=== PATIENT | male | born 1960 | race African-American/Black ===

== ENCOUNTER 2016-04-20 08:00 | Inpatient (IN) | payer BC ==
[2016-04-14 13:42] VITALS: BMI 25.0
[2016-06-08] MEDS ORDERED: BUPIVACAINE HCL/PF 0.25% (2.5MG/ML) 10 ML VIAL IJ ONE
[2016-06-08 07:17] LABS: INR 1.1 (0.82-1.09); PROTHROMBIN TIME (PATIENT) 12.1 SEC (9.98-11.88)
[2016-06-08] MEDS ORDERED: BUPIVACAINE HCL/PF 0.25% (2.5MG/ML) 10 ML VIAL ONE (07:19)
[2016-06-08] MEDS ORDERED: THROMBIN (BOVINE) 5,000 UNIT VIAL TP ONE ×3 (07:19→09:15)
[2016-06-08 07:20] LABS: ACTIVATED PTT 35.7 SECONDS (26.9-34.4)
[2016-06-08] MEDS ORDERED: PNEUMOC 13-VAL CONJ-DIP CRM/PF 0.5 ML DISP.SYRIN IM ONE (07:29)
[2016-06-08] MEDS ORDERED: BACITRACIN 30 GM TUBE TOPICAL OINTMENT ONE (07:58)
[2016-06-08] MEDS ORDERED: MIDAZOLAM HCL 2 MG/2 ML SINGLE DOSE VIAL ONE ×2 (08:17)
--- NOTE | 2016-06-08 08:20 | HP ---
History & Physical Update - History History: No Change - Physical Physical: No Change - Assessment Assessment: No Change - Plan Plan: No Change
[2016-06-08] MEDS ORDERED: ROCURONIUM BROMIDE 50 MG/5 ML VIAL ONE (08:25)
[2016-06-08] MEDS ORDERED: PROPOFOL 20 ML ONE ×17 (08:27→10:40)
[2016-06-08] MEDS ORDERED: BACITRACIN 30 GM TUBE TOPICAL OINTMENT TP ONE (08:40)
[2016-06-08] MEDS ORDERED: ceFAZolin SODIUM 1 GM VIAL IVPB ONE (08:40)
[2016-06-08] MEDS ORDERED: GELATIN SPONGE,ABSORBABLE 1 GM PACKET TP ONE ×2 (09:15)
[2016-06-08] MEDS ORDERED: BACITRACIN 50,000 UNITS VIAL TP ONE ×2 (09:15)
[2016-06-08] MEDS ORDERED: LIDOCAINE HCL/PF 2% SDV 5ML VIAL ONE (12:09)
[2016-06-08] MEDS ORDERED: ONDANSETRON 4 MG/2 ML VIAL ONE (12:09)
[2016-06-08] MEDS ORDERED: ONDANSETRON 4 MG/2 ML VIAL IVPB PRN (12:16)
--- NOTE | 2016-06-08 12:16 | OP ---
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; stenosis; cord compression, myelopathy; prior C5-6 fusion Operation: Partial/extended corpectomies C3 and C4 for decompression of spinal cord and cervical roots; anterior interbody fusion C3-4; instrumentation C3-4; interbody implant; microdissection; traction for disc space distraction and implant placement Findings: Large bridging osteophytes; posterior fibrotic HNP R> L with cord compression; sensitive roots R > L; sensitive roots R > L Implants: [employer] 22 mm Trinica Select plate and 16 mm variable angle screws; 8 mm lordotic Floydada interbody implant Post-Operative Diagnosis: Same as Pre-op Surgeon: Wilian Carvajal) Steel Turner: Barbara Hernandez Anesthesiologist/MEDICAL RECEPTION SPECIALIST: Martha Farrell MD Anesthesia: General Specimens Removed: C3-4 HNP Estimated Blood Loss (mls): 25
[2016-06-08] MEDS ORDERED: GABAPENTIN 300 MG CAPSULE (FP) PO PRN (12:18)
[2016-06-08] MEDS: HYDROmorphone HCL CARPU-JECT 1 MG/1 ML DISP.SYRIN IVPB PRN ×2 (12:55→19:04)
[2016-06-08] MEDS ORDERED: HYDROmorphone HCL CARPU-JECT 2 MG/1 ML DISP.SYRIN ONE (13:19)
[2016-06-08] MEDS ORDERED: LACTATED RINGERS SOLUTION 1,000 ML IV SCH (13:30)
--- NOTE | 2016-06-08 13:51 | OP ---
DATE OF OPERATION: 06/08/2016 PREOPERATIVE DIAGNOSIS: C3-C4 radiculopathy. POSTOPERATIVE DIAGNOSIS: C3-C4 radiculopathy. PROCEDURE: Anterior cervical decompression and interbody fusion and instrumentation at C3-C4. SURGICAL ATTENDING: Wilian Carvajal MD, and Tammy Martinez MD ANESTHESIA: General with endotracheal intubation. POSITION: Supine. CLOSURE : Vicryl 3-0 for platysma and for subcutaneous, 4-0 undyed Vicryl for skin. ESTIMATED BLOOD LOSS: Less than 100 mL. COMPLICATIONS: None. CONDITION: To recovery room in stable condition. DESCRIPTION OF PROCEDURE: The patient was taken to the operating room on June 08, 2016. General anesthesia with endotracheal intubation was administered by the anesthesiologist. IV Kefzol was given prophylactically prior to the case. Patient was placed supine on the operating table. Spinal cord monitoring was instituted prior to the case. Localization of the level was performed using a spinal needle and a preoperative x-ray confirming the C3-C4 level. The anterior cervical region was then prepped and draped in the usual sterile fashion. As patient has a previous incision on the right side from a C5-C6 surgical fusion 10 years prior, we elected to use the right side for the surgical approach to this procedure. A horizontal incision at the level C3-C4 was incised. Hemostasis was achieved with Bovie cautery. Incision was carried through the platysma. Blunt dissection was then carried down to the prevertebral fascia with retractors being applied. At this time Dr. Luis Manuel Carvajal, neurosurgeon, performed the interbody fusion. Please see his dictation on this procedure which was dictated separately. Post the fusion being performed, the wound was closed in layers with 3-0 Vicryl for the platysma, 3-0 for subcutaneous, and 4-0 undyed Vicryl with Steri-Strips for skin. Sterile dressing was applied. Patient awakened from anesthesia and transferred to recovery room in stable condition. No complications. TAMMY MARTINEZ M.D. [id number]
--- NOTE | 2016-06-08 13:53 | SURG ---
Surgery Tire Stripper Note Tire Stripper: Barbara Hernandez PA-C Date of Service: 06/08/16 Diagnosis: C3-4 spondylosis; stenosis; cord compression, myelopathy; prior C5-6 fusion Procedure: Partial/extended corpectomies C3 and C4 for decompression of spinal cord and cervical roots; anterior interbody fusion C3-4; instrumentation C3-4; interbody implant; microdissection; traction for disc space distraction and implant placement I was present for the entirety of the operative procedure. For further detail, please refer to operative report. Visit type - Case Type Case Type: Scheduled Admission - Emergency Emergency Visit: No - New patient This patient is new to me today: Yes Date on this admission: 06/08/16 - Critical Care Critical Care patient: No
[2016-06-08] MEDS ORDERED: diazePAM 5 MG TABLET ONE (15:49)
[2016-06-08] MEDS: oxyCODONE HCL 5 MG TABLET PO PRN (15:50)
[2016-06-08] MEDS: diazePAM 5 MG TABLET PO SCH ×2 (15:50→22:45)
[2016-06-08] MEDS: DOCUSATE SODIUM 100 MG CAPSULE (FP) PO SCH ×2 (15:51→22:45)
[2016-06-08] MEDS: D5-1/2NS+20 MEQ KCL - 1,000 ML IV SCH (15:51)
--- NOTE | 2016-06-08 15:56 | PN ---
Progress Note (short form) - Note Progress Note: NEUROSURGERY Seen in PACU earlier AF,VSS O2 sat 99% PE: Dressing C/D/I General- unremarkable; Motor- moving all 4 ext's, L UE somewha stronger; Sensation- difficult to fully assess NPO till dinner C spine x-rays in am Findings d/w earlier All questions answered
[2016-06-08] MEDS ORDERED: PNEUMOCOCCAL 23 VACCINE 0.5 ML VIAL IM ONE (16:00)
[2016-06-08] MEDS ORDERED: CEFAZOLIN 1 GM/D5W 50 ML IVPB SCH (18:00)
[2016-06-08] MEDS: CEFAZOLIN (PRE-DOCKED) 50 ML IVPB SCH (20:00)
[2016-06-08] MEDS: TAMSULOSIN HCL 0.4 MG CAP.ER.24H (FP) PO SCH (22:44)
[2016-06-09] MEDS: D5-1/2NS+20 MEQ KCL - 1,000 ML IV SCH ×2 (01:41→12:34)
[2016-06-09] MEDS: CEFAZOLIN (PRE-DOCKED) 50 ML IVPB SCH (03:40)
[2016-06-09] MEDS: DOCUSATE SODIUM 100 MG CAPSULE (FP) PO SCH ×3 (05:27→21:18)
[2016-06-09] MEDS: diazePAM 5 MG TABLET PO SCH ×3 (05:27→21:19)
--- NOTE | 2016-06-09 08:15 | PN ---
Progress Note (short form) - Note Progress Note: Anesthesia post op Pt seen and examined S:Alert and awake. Mild neck pain O: Vital Signs Temperature 98.2 F 06/09/16 06:00 Pulse Rate 80 06/09/16 06:00 Respiratory Rate 20 06/09/16 06:00 Blood Pressure 135/75 06/09/16 06:00 O2 Sat by Pulse Oximetry (%) 100 06/08/16 21:00 A/P:s/p laminectomy Doing well post op Continue current care Aidan Murray MD
[2016-06-09] MEDS ORDERED: DEXAMETHASONE SOD PHOSPHATE 4 MG/1 ML VIAL IVPUSH ONE (08:51)
--- NOTE | 2016-06-09 08:51 | PN ---
Progress Note (short form) - Note Progress Note: NEUROSURGERY POD #1 Incisional pain Some sore throat AF,VSS PE: Dressing C/D/I- changed General- unremarkable; Motor- moving all 4 ext's, L UE stronger 4+-5 except L Hand intrinsics; Sensation- intact LT except L ulnar distribution Adv diet C spine x-rays pending Decadron x1 more PT for gait and hand All questions answered
[2016-06-09] MEDS: oxyCODONE HCL 5 MG TABLET PO PRN ×2 (11:04→21:18)
--- NOTE | 2016-06-09 13:50 | PATH ---
Surgical Pathology Report Patient Name: DIEGO LEDEZMA Med. Rec. #: [id number] /Age/Gender: 1960 (Age: 56) / M Account: [id number] Location: [facility] MED/SURG Taken: 06/08/2016 Received: 06/08/2016 Reported: 06/09/2016 Physicians: Shaunna Shane M.D. Specimen(s) Received DISC C3-C4 Clinical History C3-C4 disc protrusion with spinal cord impingement and myelomalacia/edema associated cervical myelopathy Multilevel cervical degenerative disc disease History of anterior cervical decompression and fusion at the C5-C4 level Final Diagnosis INTERVERTEBRAL DISC, C3-C4, ANTERIOR CERVICAL DECOMPRESSION, FUSION: FRAGMENTS OF CARTILAGE AND BONE WITH DEGENERATIVE CHANGES. Electronically Signed George Hubbard M.D. Gross Description Received in formalin, labeled "disc C3-C4" is a 3.5 x 2.5 x 0.4 cm aggregate of mann fragments of fibrocartilaginous and bone tissue. A litigation claim representative portion is submitted in one cassette, following decalcification. 06/08/201606/08/2016
--- NOTE | 2016-06-09 16:56 | OP ---
DATE OF OPERATION: 06/08/2016 PREOPERATIVE DIAGNOSES: 1. Large cervical osteophytes at C3-4 and C4-5 with associated disk herniation, resulting in spinal cord compression, cervical impingement, and cervical myelopathy at C3-4. 2. History of C5-6 anterior cervical fusion. POSTOPERATIVE DIAGNOSES: 1. Large cervical osteophytes at C3-4 and C4-5 with associated disk herniation, resulting in spinal cord compression, cervical impingement, and cervical myelopathy at C3-4. 2. History of C5-6 anterior cervical fusion. ATTENDING SURGEON: Wilian Carvajal MD CO-SURGEON: Hardeep Martinez MD ANESTHESIA: General endotracheal. ANESTHESIOLOGIST: Martha Farrell MD MARIONETTE PERFORMER: VON Perez PROCEDURE: 1. Preoperative placement and postoperative removal of cranial traction tongs for intraoperative traction and distraction of the disk space (67837). 2. Anterior cervical diskectomy at C3-4. 3. Anterior cervical partial corpectomies for spinal cord and cervical root decompression at C3 and C4 (18871-53, 05458). 4. Microsurgical facetectomy with operative microscope with microsurgical techniques (38086). 5. Anterior cervical fusion at C3-4 (50347). 6. Anterior cervical interbody implant with anterior cervical plating system placement at C3-4 (70647). FINDINGS: 1. Large anterior and posterior osteophytes at C3-4. 2. Severe degenerative disk space narrowing at C3-4. 3. Disk herniation with cord impingement, right greater than left at C3-4. INDICATIONS: The patient is a 56-year-old male with history of anterior cervical fusion at the C5-6 level, which was performed 10 years earlier at a different institution. He complains of increasing upper and lower extremity weakness, left greater than right as well as neck pain and decreased dexterity. Because of his intractable symptoms and failure of conservative treatment as well as abnormal EMG, he is consented for anterior cervical decompression and fusion with instrumentation. The risks of the procedure include but are not limited to bleeding, infection, dural tear with CSF leak, neurological injury, increased thromboembolic risks, hoarseness, swallowing difficulties, and other risks of general anesthesia. The patient understands the indications for the procedure, procedure in detail, risks and benefits, and alternatives for treatment of his cervical spine condition and wished to proceed. No guarantees given for a favorable outcome. Because of a higher cervical level at C3-4 of the pathology, the risks are somewhat higher, and he understands that. Intraoperative SSEP, EMG and MEP signals were monitored. PROCEDURE IN DETAIL: After the patient was taken to the operating room, he was placed in supine position. After general anesthesia was induced and appropriate monitoring lines were placed, a bite block was inserted, and shoulders were taped down the side. The cranial traction tongs were placed with bacitracin ointment , and no traction weight was placed until baseline SSEP, EMG, and MEP signals were obtained. There was significant delay of the SSEP signals in both upper and lower extremities bilaterally. Left-sided signal was worse. The right side anterior cervical approach was chosen because of prior exposure done at the C5-6 level on the right side. A new incision was made higher after x- rays was obtained. Both the opening and closing were dictated by Dr. Hardeep Martinez under a separate dictation. Neurosurgical team took over the care with the prevertebral fascia being exposed, and the longus coli muscle was reflected laterally with periosteal elevator. A needle was inserted near the disk space at C3-4. Large bridging osteophytes and scar tissue were noted. After a self-retaining retractor was inserted, the osteophyte was burred down with high-speed pneumatic drill and was resected using Leksell rongeur, Kerrison and pituitary rongeur. Further localizing x-rays were obtained to ascertain the exposure to be into the C3-4 disk space. The disk annulus was completely calcified. After the disk portion material was removed with pituitary rongeur, the disk material was largely incised with No. 15 blade and diskectomy was carried out with pituitary rongeur. The disk space was allowed to collapse. Partial corpectomy was needed at C3 and C4 to decompress the spinal cord and proximal cervical roots. The angled and straight curettes, as well as Kerrison and pituitary rongeurs were used to remove osteophytes and the disk material, and the disk material was sent for pathology analysis. Partial corpectomy was carried out with high- speed pneumatic drill and Kerrison rongeur. The posterior osteophyte was also encountered and that was burred down with high-speed pneumatic drill as well. This annulus of the posterior longitudinal ligament was dissected free with angled curette and resected with Kerrison rongeur with the use of the operating microscope, for both illumination and magnification, microsurgical techniques were utilized. The spinal cord was marked where it was impinged on the right side and moderately impinged on the left side. Bilateral foraminotomy was carried out with angled curette and Kerrison rongeur. After uncovertebral joint was burred down it was resected with Kerrison rongeur. Bilateral foraminotomy was carried out with angled curette and Kerrison rongeur similarly. Epidural hemostasis was obtained with bipolar electrocautery and thrombin-soaked Gelfoam. The traction weight slowly increased first from 0 to 5 and then to 10 pounds to distract the disk space. The disk space AP diameter was sized to be approximately 18 mm, and the vertical height was 8 mm. Under gentle manual traction, an 8-mm cortical cancellous bony prosthetic device from [employer] was inserted and countersunk by about 3 mm. A 22-mm Trinica Select titanium plate from [employer] was secured with fixation pin and a screw uriarte first, decorticated with high-speed pneumatic drill and a hand-held awl and drill guide were used to create a path for the screws, and 16-mm screws were used at C3 and C4 bilaterally with a medial angle of approximately 8 degrees. The plate was flush on the subsequent x-rays. The locking mechanism and the plating screw system were engaged. There was some occasional sporadic EMG activity mostly on the right side, but that was temporary and generally went away with time. The MEP signals were poor, but remained stable throughout as well as the SSEP signal. The wound was irrigated with copious amount of irrigation, and the esophagus and trachea was closely inspected as well as the carotid sheath, which were all in good condition. A piece of Surgicel was laid on the plating system as well as the dissection tract. The closure was dictated by Dr. Martinez under a separate dictation. The patient received 1 dose of 2 g of Ancef and 10 mg of Decadron prior to the incision. All needles and lap counts were correct. The OR timeout procedure was followed. The cranial traction tong was removed, and there was no significant bleeding. The intraoperative findings as well as the patient's postoperative condition were communicated with the patient's waiting in the waiting area. WILIAN CARVAJAL M.D. [id number] MTDD
[2016-06-09] MEDS: TAMSULOSIN HCL 0.4 MG CAP.ER.24H (FP) PO SCH (21:19)
[2016-06-10] MEDS: DOCUSATE SODIUM 100 MG CAPSULE (FP) PO SCH (06:28)
[2016-06-10] MEDS: oxyCODONE HCL 5 MG TABLET PO PRN ×2 (06:28→12:38)
[2016-06-10] MEDS: diazePAM 5 MG TABLET PO SCH (06:29)
--- NOTE | 2016-06-10 08:51 | PN ---
Progress Note (short form) - Note Progress Note: NEUROSURGERY POD #2 Incisional pain Some sore throat Voiding without problem Tmax 99.3, now 98.4,VSS PE: Dressing C/D/I General- unremarkable Motor- moving all 4 ext's, L UE 4+-5 except L Hand intrinsics 4-, stronger overall; Sensation- intact LT except L ulnar distribution C spine x-rays: good position of new C3-4 implants; prevertebral swelling as expected Adv diet PT for gait and hand All questions answered Discharge instructions given
[2016-06-10 10:00] VITALS: BP 136/81; PULSE 85; TEMP 98.8
[2016-06-10] MEDS: D5-1/2NS+20 MEQ KCL - 1,000 ML IV SCH (12:38)
== END 2016-06-10 13:12 | disposition home or self-care (01) | DRG 473 ==
LOC: JSAMEDAYSX 06-08 06:28 → J8W 06-08 15:30
PROVIDERS: ADMIT Orthopaedic Surgery; ATTEND Orthopaedic Surgery
PROC: 0RG10J0 Fusion of Cervical Vertebral Joint with Synthetic Substitute, Anterior Approach, Anterior Column, Open Approach (ICD-10-PCS; 2016-06-08)
PROC: 0RT30ZZ Resection of Cervical Vertebral Disc, Open Approach (ICD-10-PCS; principal; 2016-06-08 08:00)
DX: M50.01 Cervical disc disorder with myelopathy, high cervical region (principal); Z98.1 Arthrodesis status; M47.26 Other spondylosis with radiculopathy, lumbar region; E55.9 Vitamin D deficiency, unspecified; R73.9 Hyperglycemia, unspecified; G56.22 Lesion of ulnar nerve, left upper limb; K21.9 Gastro-esophageal reflux disease without esophagitis
CPT/HCPCS: 36415; 72050-TC; 85610; 85730; 86850; 86900; 86901; 88304-TC; 88311-TC; 94760; 97116-GP; 97161-GP